=== PATIENT | male | born 1970 | race Caucasian/White ===

== ENCOUNTER 2019-08-04 03:39 | Emergency (ER) | payer SELFPAY ==
[~2019-08-04] VITALS: Ht 175.3 cm; Wt 68.0 kg
== END 2019-08-04 04:09 | disposition home or self-care (01) ==
LOC: ED 03:39
DX: R22.41 Localized swelling, mass and lump, right lower limb (principal); R03.0 Elevated blood-pressure reading, without diagnosis of hypertension
CPT/HCPCS: 99283

== ENCOUNTER 2019-08-06 01:16 | Emergency (ER) | payer SELFPAY ==
[~2019-08-06] VITALS: Ht 175.3 cm; Wt 68.0 kg
--- OUTSIDE RECORDS SUMMARY | 2019-08-06 01:18 | XMS ---
PreManage Notification: LISA AVILA Security [employer] Events No recent Security Events currently on file CRITERIA MET - [facility] - 2 Visits in 30 Days CARE PROVIDERS There are no care providers on record at this time. Phillip has no Care Guidelines for this patient. Davon VISIT COUNT (12 MO.) 2 [facility] [place] [facility] TOTAL 2 NOTE: Visits indicate total known visits. ED/C VISIT TRACKING (12 MO.) [facility] COMPLAINT: - ANXIETY 08/04/2019 03:40 [facility] [place] TYPE: Emergency COMPLAINT: - SKIN PROBLEM INPATIENT VISIT TRACKING (12 MO.) No inpatient visits to display in this time frame [email or web address]
== END 2019-08-06 02:10 | disposition home or self-care (01) ==
LOC: ED 01:16
DX: F41.9 Anxiety disorder, unspecified (principal)
CPT/HCPCS: 99283

== ENCOUNTER 2019-08-20 18:25 | Emergency (ER) | payer SELFPAY ==
[~2019-08-20] VITALS: Ht 175.3 cm; Wt 77.1 kg
--- OUTSIDE RECORDS SUMMARY | 2019-08-20 18:28 | XMS ---
PreManage Notification: LISA AVILA Security Gatehouse Attendant Events 1 event(s) in the past 18 months Most recent security events: Verbal at [facility] 08/06/2019 01:17 - Patient verbally threatened care providers, staff or other patients. Details: patient threatened registration staff at discharge and refused to leave property. Security unable to get patient to leave, police had to be called and patient trespassed. CRITERIA MET - Group Notification - [facility] - 2 Visits in 30 Days CARE PROVIDERS There are no care providers on record at this time. Phillip has no Care Guidelines for this patient. E.DKrissy VISIT COUNT ([address] [facility]. TOTAL 3 NOTE: Visits indicate total known visits. ED/[facility] [place] [place] VISIT TRACKING (12 MO.) 08/20/2019 18:25 [facility] [place] TYPE: Emergency COMPLAINT: - R LEG PAIN 08/06/2019 01:17 [facility] [place] TYPE: Emergency COMPLAINT: - ANXIETY DIAGNOSES: - Anxiety disorder, unspecified 08/04/2019 03:40 [facility] [place] TYPE: Emergency COMPLAINT: - SKIN PROBLEM DIAGNOSES: - Localized swelling, mass and lump, right lower limb - Localized swelling, mass and lump, right lower limb - Elevated blood-pressure reading, w/o diagnosis of htn INPATIENT VISIT TRACKING (12 MO.) No inpatient visits to display in this time frame [email or web address]
== END 2019-08-20 19:15 | disposition home or self-care (01) ==
LOC: ED 18:25
DX: M79.604 Pain in right leg (principal)